=== PATIENT | male | born 1940 | race Caucasian/White ===

== ENCOUNTER → 2019-04-19 | Outpatient (CLI) | payer OTHER, MEDICARE | LOC: SJCVCIMAG 07:52 | DX: I08.0 Rheumatic disorders of both mitral and aortic valves (principal); I49.3 Ventricular premature depolarization; I42.0 Dilated cardiomyopathy; I87.2 Venous insufficiency (chronic) (peripheral); I10 Essential (primary) hypertension; E78.5 Hyperlipidemia, unspecified ==

== ENCOUNTER → 2019-05-11 | Outpatient (CLI) | payer OTHER, MEDICARE | LOC: SJCVC 08:51 | DX: I49.3 Ventricular premature depolarization (principal); R94.31 Abnormal electrocardiogram [ECG] [EKG]; I42.8 Other cardiomyopathies; N40.0 Benign prostatic hyperplasia without lower urinary tract symptoms; E78.5 Hyperlipidemia, unspecified; I10 Essential (primary) hypertension; E55.9 Vitamin D deficiency, unspecified; Z79.899 Other long term (current) drug therapy ==

== ENCOUNTER 2019-08-13 06:42 | Observation (INO) | payer OTHER, MEDICARE ==
[2019-08-13] VITALS (12 sets, daily range): BP systolic 108–139; BP diastolic 55–79
[~2019-08-13] VITALS: Ht 185.4 cm; Wt 98.4 kg
--- NOTE | ~2019-08-13 | P ---
[facility] [place] [address] PROCEDURE REPORT Name: BECK HASTINGS Room #: 201-P [facility]..#: [id number] Admission: 08/13/19 Attend Phys: Chapito Wong MD Discharge: Date of : 44 Report #: [id number] THIS REPORT FOR: cc: Sagrario Calle MD,Chapito Betancourt MD, MD ~ CC: Chapito Calle DATE OF SERVICE: 08/13/2019 PROCEDURE: Ventricular tachycardia ablation. PREOPERATIVE DIAGNOSES: 1. Cardiomyopathy. 2. Frequent premature ventricular contractions. HISTORY: The patient is a 79-year-old male recently diagnosed with a nonischemic cardiomyopathy and had a recent nurse monitoring showing a PVC burden of 30%. He is here for PVC ablation. ANESTHESIA: The patient underwent general anesthesia with no anesthesia related complications. DESCRIPTION OF PROCEDURE: The patient underwent informed consent. We discussed the details of the procedure including the risks, which include but not limited to bleeding, vascular damage, cardiac perforation, stroke, PR as well as damage to the [place]ongo conduction system requiring permanent pacemaker. He understood these risks and is willing to proceed. The patient was brought to the EP laboratory in a fasting and unsedated state and prepped and draped in a sterile fashion. In the right femoral artery, I placed an 8-Polish short sheath. In the right femoral vein, I placed an 8-Polish, 9-Polish and 6-Polish short sheaths. In the left femoral vein, I placed a 6-Polish short sheath and a 7-Polish short sheath. Next, under fluoroscopy, wires were placed into the heart. I placed a Duo-Decapolar into the coronary sinus for left atrial pacing and recording. I placed a quadripolar catheter at the HRA and his positions. I placed an ICE catheter into the right atrium for intracardiac ultrasound, which I utilized primarily to visualize the left ventricle, the coronary cusps and coronary arteries as well as the right ventricular outflow tract. At baseline, the patient was in sinus rhythm with frequent PVCs. His PVC was almost in M like pattern in lead V1, transition in V3 positive in II, III and aVF. The patient had 2 other PVC morphologies as well, one of them was a left bundle-branch block transitioned in V4 and was positive in II, III and aVF and then a third PVC, there was an infrequently noted. I took the ablation catheter into the right ventricle marked the His and [address] [address] PROCEDURE REPORT Name: BECK HASTINGS Room #: 201-P [facility] Redd M.R.#: [id number] Admission: 08/13/19 Attend Phys: Chapito Wong MD Discharge: Date of : 44 Report #: [id number] then looked into the right ventricular outflow tract and the PVCs did not appear to be early at this location. Therefore, the patient was systemically heparinized and I took the ablation catheter retrograde into the left ventricle. It was clearly not arising from the left ventricle either. I therefore started to look into the coronary cusps and it appeared that it was earliest in the right coronary cusp by about 15 milliseconds. I was able to visualize the left main using intracardiac ultrasound, but I could not really determine the location of the right coronary artery. Therefore, I had Dr. Singh comment and perform a selective angiogram of the right coronary artery. This demonstrated that my site of ablation was over a centimeter from the os of the right coronary artery ostium. Pace maps in this location were 92-96%. Ablation at this site resulted in suppression of the PVCs, but they would come back. I initially ablated at 20 [address] and then increased to 30 [address] and after multiple ablation lesions at this site, the PVCs were rendered non-inducible. Of note, he did have his other PVC that was a left bundle-branch block in nature that was more infrequent and was clearly not arising from the coronary cusps. I had also looked on the right side for this PVC as well and was not earlier here. This may be more of an intramyocardial PVC that could not be ablated, but was much more infrequent. Using intracardiac ultrasound, I verified there was no pericardial effusion. The patient received systemic protamine and once ACT was within acceptable range, catheters and sheaths were pulled and hemostasis was obtained. The patient awoke neurologically and hemodynamically intact. No complications and no significant bleeding. CONCLUSIONS: Successful ablation of premature ventricular contractions arising from the right coronary cusp. By: [id number] Chapito Wong MD /nt
[2019-08-13] MEDS ORDERED: ASA81BEC PO (07:46)
[2019-08-13] MEDS ORDERED: LOTENSIN40 MG PO (07:47)
[2019-08-13] MEDS ORDERED: CARVEDILOL25 MG PO (07:48)
[2019-08-13] MEDS ORDERED: OSTERA TABLET1 EAC1 PO (07:49)
[2019-08-13] MEDS ORDERED: HYDROCHLOROTH12.5 M2 PO (07:50)
[2019-08-13] MEDS ORDERED: SILDENAFIL20 MG PO (07:51)
[2019-08-13 07:52] LABS: ABSOLUTE NEUTROPHILS 6.1 thou/uL (1.4-8.2); BASOPHILS 0.5 % (0.0-2.0); EOSINOPHILS 0.5 % (0.0-3.0); HEMATOCRIT 45.2 % (42.0-52.0); HEMOGLOBIN 15.3 gm/dL (14.0-18.0); LYMPHOCYTES 27.6 % (24.0-44.0); MCH 29.7 pg (26.0-34.0); MCHC 33.8 g/dL (28.0-37.0); MCV 87.9 fL (80.0-100.0); MONOCYTES 5.7 % (1.0-8.0); PLATELET COUNT 212 thou/uL (150-400); POLYS 65.7 % (36.0-66.0); RBC 5.14 mil/uL (4.50-6.00); RDW 14.6 % (10.5-14.5); WBC 9.3 thou/uL (4.0-11.0)
[2019-08-13] MEDS ORDERED: ZOCOR 20 MG TAB20 M1 PO (07:52)
[2019-08-13 08:03] LABS: CALCIUM 8.9 mg/dL (8.5-10.1); CREATININE 1.1 mg/dL (0.7-1.3); POTASSIUM 4.2 mmol/L (3.5-5.1)
[2019-08-13 08:06] LABS: APTT 29.4 Seconds (24.5-32.8); PROTIME 10.1 Seconds (9.3-11.4)
--- NOTE | 2019-08-13 14:39 | CATHLAB ---
[facility] [place] [address] INVASIVE PROCEDURE REPORT Name: BECK HASTINGS Room #: REG NATALI Arora.#: [id number] Admission: 08/13/19 Attend Phys: Chapito Wong MD Discharge: Date of : 44 Report #: [id number] THIS REPORT FOR: cc: Sagrario Calle MD, Shazia MD Lundgren, Craig H. MD [facility] ~ APPROVED REPORT Study performed: 08/13/2019 11:33:44 Patient Details Patient Status: Out-Patient Room #: Event Personnel Arnie Singh MD Procedures Performed Right Coronary Angiogram Procedure Narrative Selective injection of the right coronary was performed in the EP lab as part of a PVC ablation procedure. The patient had been intubated, sedated and both arterial and venous lines had been placed in the right groin. Coronary Angiography The patient's coronary anatomy is right dominant. [place] Artery Percent Stenosis Only the right coronary was selectively engaged and injected. Diagnostic Cath Right Coronary The right coronary was selectively engaged for anatomic localization. Angiographically normal and dominant. The origin of the right coronary was in its usual anatomic position within the right coronary cusp. Left Ventriculography Left Ventriculography was not performed. Conclusion 1. Successful engagement and anatomic localization of the right coronary performed as part of a PVC ablation procedure. [facility] [place] [address] INVASIVE PROCEDURE REPORT Name: BECK HASTINGS Room #: [id number] Admission: 08/13/19 Attend Phys: Chapito Wong Discharge: Date of : 44 Report #: [id number] 2. The origin of the right coronary was in its usual anatomic position within the right coronary cusp. <ELECTRONICALLY SIGNED> By: Arnie Singh MD, FACC 08/13/19 1437 36 36 Arnie Singh MD, FACC /INF
[2019-08-14 00:05] VITALS: BP 100/59
[2019-08-14 00:45] VITALS: BP 100/59
[2019-08-14 04:45] VITALS: BP 115/58; BP 15/58
[2019-08-14 08:45] VITALS: BP 113/61
[2019-08-14 09:23] VITALS: BP 108/55
== END 2019-08-14 10:42 | disposition home or self-care (01) ==
LOC: CATH 06:42 → OR 09:12 → CATH 11:00 → 2N 14:50 → CATH 15:06 → 2N 08-14 10:42
PROVIDERS: ADMIT Internal Medicine Cardiovascular Disease
DX: I49.3 Ventricular premature depolarization (principal); I42.9 Cardiomyopathy, unspecified
CPT/HCPCS: 62110; 62900; 65020; 65040; 70005

== ENCOUNTER → 2019-09-06 | Outpatient (CLI) | payer OTHER, MEDICARE ==
[~2019-09-06] MED LIST: ASA81BEC PO; CARVEDILOL25 MG PO; HYDROCHLOROTH12.5 M2 PO; LOTENSIN40 MG PO; OSTERA TABLET1 EAC1 PO; SILDENAFIL20 MG PO; ZOCOR 20 MG TAB20 M1 PO
== END ==
LOC: SJCVC 14:11
DX: I42.0 Dilated cardiomyopathy (principal); I49.3 Ventricular premature depolarization; I10 Essential (primary) hypertension; E78.5 Hyperlipidemia, unspecified; Z79.82 Long term (current) use of aspirin; Z79.899 Other long term (current) drug therapy; Z82.49 Family history of ischemic heart disease and other diseases of the circulatory system

== ENCOUNTER → 2019-11-11 | Outpatient (CLI) | payer OTHER, MEDICARE | LOC: SJCVC 14:31 | PROVIDERS: ATTEND Internal Medicine Cardiovascular Disease | DX: R00.1 Bradycardia, unspecified (principal); I49.3 Ventricular premature depolarization; I42.8 Other cardiomyopathies ==

== ENCOUNTER → 2020-03-13 | Outpatient (CLI) | payer OTHER, MEDICARE | LOC: SJCVCIMAG 10:19 | PROVIDERS: ATTEND Internal Medicine | DX: I08.8 Other rheumatic multiple valve diseases (principal); I11.9 Hypertensive heart disease without heart failure; I42.0 Dilated cardiomyopathy; I49.3 Ventricular premature depolarization; E78.5 Hyperlipidemia, unspecified; Z79.82 Long term (current) use of aspirin; Z79.899 Other long term (current) drug therapy ==

== ENCOUNTER → 2020-05-23 | Outpatient (CLI) | payer OTHER, MEDICARE | LOC: SJCVC 09:29 | PROVIDERS: ATTEND Internal Medicine Cardiovascular Disease | DX: I49.3 Ventricular premature depolarization (principal); I42.0 Dilated cardiomyopathy; I10 Essential (primary) hypertension; Z79.82 Long term (current) use of aspirin; Z79.899 Other long term (current) drug therapy; Z88.2 Allergy status to sulfonamides; Z98.890 Other specified postprocedural states ==

== ENCOUNTER → 2020-09-11 | Outpatient (CLI) | payer OTHER, MEDICARE | LOC: SJCVC 10:02 | PROVIDERS: ATTEND Internal Medicine | DX: R94.31 Abnormal electrocardiogram [ECG] [EKG] (principal); I49.3 Ventricular premature depolarization; I42.0 Dilated cardiomyopathy; E78.5 Hyperlipidemia, unspecified; I10 Essential (primary) hypertension; N40.0 Benign prostatic hyperplasia without lower urinary tract symptoms; I87.2 Venous insufficiency (chronic) (peripheral); R31.9 Hematuria, unspecified; E55.9 Vitamin D deficiency, unspecified; Z79.82 Long term (current) use of aspirin; Z88.2 Allergy status to sulfonamides; Z79.899 Other long term (current) drug therapy; Z85.828 Personal history of other malignant neoplasm of skin ==

== ENCOUNTER → 2021-03-13 | Outpatient (CLI) | payer OTHER, MEDICARE | LOC: SJCVC 09:55 | PROVIDERS: ATTEND Internal Medicine | DX: E78.5 Hyperlipidemia, unspecified (principal); I49.3 Ventricular premature depolarization; I42.0 Dilated cardiomyopathy; R94.31 Abnormal electrocardiogram [ECG] [EKG]; I10 Essential (primary) hypertension; R31.9 Hematuria, unspecified; Z79.82 Long term (current) use of aspirin; Z79.899 Other long term (current) drug therapy; Z88.8 Allergy status to other drugs, medicaments and biological substances; Z82.49 Family history of ischemic heart disease and other diseases of the circulatory system ==

== ENCOUNTER → 2021-05-29 | Outpatient (CLI) | payer OTHER, MEDICARE | LOC: SJCVC 09:05 | PROVIDERS: ATTEND Internal Medicine Cardiovascular Disease | DX: R94.31 Abnormal electrocardiogram [ECG] [EKG] (principal); I10 Essential (primary) hypertension; I49.3 Ventricular premature depolarization; I87.2 Venous insufficiency (chronic) (peripheral); N40.0 Benign prostatic hyperplasia without lower urinary tract symptoms; E78.5 Hyperlipidemia, unspecified; E55.9 Vitamin D deficiency, unspecified; Z98.890 Other specified postprocedural states; Z79.82 Long term (current) use of aspirin; Z79.899 Other long term (current) drug therapy; Z88.8 Allergy status to other drugs, medicaments and biological substances; D04.9 Carcinoma in situ of skin, unspecified ==